=== PATIENT | female | born 1950 | race Caucasian/White ===

== ENCOUNTER 2021-08-22 13:32 | Inpatient (IN) | payer MEDICARE ==
--- NOTE | 2021-08-22 16:15 | ED ---
General Adult HPI - General Chief complaint: Abdominal Pain Stated complaint: Elevated Liver Enzymes/WBC, Abd Pain Time Seen by Provider: 08/22/21 15:53 Source: patient Mode of arrival: ambulatory Limitations: no limitations - History of Present Illness Initial comments: Dictation was produced using [employer] dictation software. please excuse any gram matical, word or spelling errors. Chief Complaint: 70-year-old female past medical history of bowel resection due to diverticulitis presents to the emergency department for abdominal pain History of Present Illness: 70-year-old female presents to the emergency department for abdominal pain. Patient currently resides in [place]. 10 years ago she had 12 inches of bowel resected for repeated episodes of diverticulitis. Patient has had irregular bowel movements since then. They are in town visiting their property when over the last couple days patient's been having increased episodes of suprapubic abdominal pain. She is worried that she is having diverticulitis. Didn't know what to do so they went to the urgent care she had some blood work drawn. Her blood work was otherwise unremarkable except for some mild liver enzyme elevations. Patient presents with . The plan was to be in town for the next month before going back to [place]. Patient has any fever. No nausea vomiting. No diarrhea. Patient states she's had difficulty passing stool and she thinks she is constipated. She has history of bowel resection and hysterectomy. The ROS documented in this emergency department record has been reviewed and confirmed by me. Those systems with pertinent positive or negative responses have been documented in the HPI. All other systems are other negative and/or noncontributory. PHYSICAL EXAM: General Impression: Alert and oriented x3, not in acute distress HEENT: Normocephalic atraumatic, extra-ocular movements intact, pupils equal and reactive to light bilaterally, mucous membranes moist. Cardiovascular: Heart regular rate and rhythm Chest: Able to complete full sentences, no retractions, no tachypnea Abdomen: abdomen soft, mild palpatory tenderness to the suprapubic area., non- distended, no organomegaly Musculoskeletal: Pulses present and equal in all extremities, no peripheral edema Motor: no focal deficits noted Neurological: CN II-XII grossly intact, no focal motor or sensory deficits noted Skin: Intact with no visualized rashes Psych: Normal affect and mood ED course: 70-year-old female presents to the emergency department for abdominal pain. Vital signs upon arrival are within acceptable limits. Laboratory evaluation obtained. Mild leukocytosis of 11.0. 9.9 neutrophils. Metabolic panel shows mild anion gap acidosis. She has 4+ ketones. Patient has had poor oral intake in the last several days. Slightly secondary to d ehydration and starvation ketoacidosis. Computed tomography scan of the abdomen and pelvis was reviewed by radiology. Radiology read that patient's films is highly suspicious for malignancy. Phenytoin diverticula but there is extensive pelvic inflammatory changes and small amount of free nonloculated fluid. There is a adrenal nodule on the left adrenal gland. Hepatic steatosis. Nutcracker syndrome. And nonspecific dilatation to the gallbladder. Patient reevaluated at bedside. She is afebrile states that her pain is stable. Rest concern of intra-abdominal infection. Patient started on Zosyn. Given radiology images patient will be admitted to the hospital with general surgery on consult. Patient notified of these results. She is told of the radiology reading her laboratory evaluation. She is agreeable with staying in the hospital. Case discussed with Dr. Garcia who requests the patient be admitted to medicine if there is no obvious need for surgical intervention. Patient will be admitted to [facility]. - Related Data Home Medications Medication Instructions Recorded Confirmed Aspirin EC [Ecotrin Low Dose] 81 mg PO DAILY 08/22/21 08/22/21 Cephalexin [Keflex] 250 mg PO DAILY PRN 08/22/21 08/22/21 Ciprofloxacin HCl [Cipro] 500 mg PO Q12HR 08/22/21 08/22/21 Meloxicam [Mobic] 15 mg PO DAILY PRN 08/22/21 08/22/21 Spironolactone 100 mg PO DAILY 08/22/21 08/22/21 metroNIDAZOLE [Flagyl] 500 mg PO Q8H 08/22/21 08/22/21 Allergies Allergy/AdvReac Type Severity Reaction Status Date / Time No Known Allergies Allergy Verified 08/22/21 16:50 Review of Systems ROS Statement: Those systems with pertinent positive or pertinent negative responses have been documented in the HPI. ROS Other: All systems not noted in ROS Statement are negative. Past Medical History Past Medical History: Hypertension History of Any Multi-Drug Resistant Organisms: None Reported Past Surgical History: Tubal Ligation Past Psychological History: Anxiety Smoking Status: Never smoker Past Alcohol Use History: None Reported Past Drug Use History: None Reported General Exam Limitations: no limitations Course Vital Signs 08/22/21 08/22/21 08/22/21 13:35 16:35 18:11 Temperature 97.9 F Pulse Rate 100 98 91 Respiratory 16 20 20 Rate Blood Pressure 145/55 132/75 120/72 O2 Sat by Pulse 97 97 97 Oximetry 08/22/21 20:00 Temperature 98.0 F Pulse Rate 95 Respiratory 20 Rate Blood Pressure 122/69 O2 Sat by Pulse 96 Oximetry Medical Decision Making - Lab Data Result diagrams: 08/22/21 16:33 08/22/21 16:33 Lab Results 08/22/21 08/22/21 08/22/21 Range/Units 16:33 16:33 16:33 WBC 11.0 H (3.8-10.6) k/uL RBC 4.76 (3.80-5.40) m/uL Hgb 15.6 (11.4-16.0) gm/dL Hct 47.3 H (34.0-46.0) % MCV 99.5 (80.0-100.0) fL MCH 32.8 (25.0-35.0) pg MCHC 33.0 (31.0-37.0) g/dL RDW 11.8 (11.5-15.5) % Plt Count 311 (150-450) k/uL MPV 7.0 Neutrophils % 90 % Lymphocytes % 6 % Monocytes % 3 % Eosinophils % 0 % Basophils % 0 % Neutrophils # 9.9 H (1.3-7.7) k/uL Lymphocytes # 0.7 L (1.0-4.8) k/uL Monocytes # 0.3 (0-1.0) k/uL Eosinophils # 0.0 (0-0.7) k/uL Basophils # 0.0 (0-0.2) k/uL Sodium 135 L (137-145) mmol/L Potassium 4.1 (3.5-5.1) mmol/L Chloride 100 (98-107) mmol/L Carbon Dioxide 19 L (22-30) mmol/L Anion Gap 16 mmol/L BUN 10 (7-17) mg/dL Creatinine 0.41 L (0.52-1.04) mg/dL Est GFR (CKD-EPI)AfAm >90 (>60 ml/min/1.73 sqM) Est GFR (CKD-EPI)NonAf >90 (>60 ml/min/1.73 sqM) Glucose 101 H (74-99) mg/dL Calcium 9.5 (8.4-10.2) mg/dL Urine Color Yellow Urine Appearance Clear (Clear) Urine pH 5.0 (5.0-8.0) Ur Specific [place] 1.015 (1.001-1.035) Urine Protein Negative (Negative) Urine Glucose (UA) Negative (Negative) Urine Ketones 4+ H (Negative) Urine Blood Negative (Negative) Urine Nitrite Negative (Negative) Urine Bilirubin Negative (Negative) Urine Urobilinogen <2.0 (<2.0) mg/dL Ur Leukocyte Esterase Small H (Negative) Urine RBC 1 (0-5) /hpf Urine WBC 1 (0-5) /hpf Ur Squamous Epith Cells 3 (0-4) /hpf Urine Bacteria Rare H (None) /hpf Urine Mucus Rare H (None) /hpf Disposition Clinical Impression: Abdominal pain Disposition: ADMITTED IP TO THIS [facility] Condition: Fair Referrals: Nonstaff,Physician [REFERRING] - 1-2 days
[2021-08-22 16:42] LABS: Basophils % (A) 0 %; Eosinophils % (A) 0 %; HCT 47.3 % (34.0-46.0); HGB 15.6 gm/dL (11.4-16.0); Lymphocytes # (A) 0.7 k/uL (1.0-4.8); Lymphocytes % (A) 6 %; MCH 32.8 pg (25.0-35.0); MCV 99.5 fL (80.0-100.0); Monocytes # (A) 0.3 k/uL (0-1.0); Monocytes % (A) 3 %; Neutrophils # (A) 9.9 k/uL (1.3-7.7); Neutrophils % (A) 90 %; Platelet Count 311 k/uL (150-450); RBC 4.76 m/uL (3.80-5.40); RDW 11.8 % (11.5-15.5)
[2021-08-22 16:45] LABS: Appearance,Urine Clear (Clear); Bacteria,Urine Rare /hpf; Bilirubin,Urine Negative (Negative); Blood,Urine Negative (Negative); Color,Urine Yellow; Glucose,Urine (UA) Negative (Negative); Ketones,Urine 4+ (Negative); Leukocyte Esterase,Urine Small (Negative); Mucus,Urine Rare /hpf; Nitrite,Urine Negative (Negative); Protein,Urine Negative (Negative); RBC,Urine 1 /hpf (0-5); Specific Gravity,Urine 1.015 (1.001-1.035); Squamous Epithelial Cell,Urine 3 /hpf (0-4); Urobilinogen,Urine <2.0 mg/dL (<2.0); WBC,Urine 1 /hpf (0-5)
[2021-08-22 17:01] LABS: African American GFR (CKD) >90 (>60 ml/min/1.73 sqM); Anion Gap 16 mmol/L; Blood Urea Nitrogen 10 mg/dL (7-17); Calcium 9.5 mg/dL (8.4-10.2); Carbon Dioxide 19 mmol/L (22-30); Chloride 100 mmol/L (98-107); Glucose 101 mg/dL (74-99); Non-African American GFR(CKD) >90 (>60 ml/min/1.73 sqM); Potassium 4.1 mmol/L (3.5-5.1); Sodium 135 mmol/L (137-145)
[2021-08-22] MEDS ORDERED: SODIUM CHLORIDE 0.9% 1,000 ML IV STA (17:47)
[2021-08-22] MEDS ORDERED: PIPERACILLIN-TAZOBACTAM 3.375 GM in SODIUM CHLORIDE 0.9% 100 ML IVPB STA (20:21)
--- NOTE | 2021-08-22 20:24 | CT ---
EXAMINATION TYPE: CT abdomen pelvis w con DATE OF EXAM: 08/22/2021 HISTORY: Abdominal pain/pressure above pubic region, elevated liver enzymes. CT DLP: 652.6mGycm Automated Exposure Control for Dose Reduction was Utilized. CONTRAST: CT scan of the abdomen and pelvis is performed with IV Contrast, patient injected with 100 mL of Isov ue 300. COMPARISON: None FINDINGS: LUNG BASES: No significant abnormality is appreciated. INCLUDED CARDIAC STRUCTURES: Unremarkable LIVER: Hepatic steatosis. Normal contour. Heterogeneous parenchyma. No focal hepatic mass seen. GALLBLADDER : Dilated gallbladder. BILIARY TREE: Prominent extrahepatic common bile duct measuring up 7.3 mm near the victor manuel hepatis. PANCREAS: Prominent main pancreatic duct measuring less than 4 mm in diameter. Unremarkable appearing pancreas. SPLEEN: No significant abnormality is seen. ADRENALS: Normal appearing right adrenal gland. 0.8 cm low attenuating lesion in the left adrenal gla nd. KIDNEYS AND URETERS: No significant abnormality is seen. URINARY BLADDER: No significant abnormality is appreciated. ESOPHAGUS: There is mild thickening at the gastroesophageal junction. STOMACH: No significant abnormality is seen. SMALL BOWEL: No significant abnormality is seen. LARGE BOWEL: There are postsurgical changes involving the rectum. There is significant stranding surr ounding the sigmoid colon. There is a focal area in the sigmoid colon with abnormal/absent wall enhan cement seen on series 201 image 62 with extensive surrounding mesentery changes small amount of nonlo culated fluid. There are a few extramural foci of air are example series 201 image 60 and series 201 image 62. APPENDIX: Not definitely identified. HERNIAS: No significant abnormality is seen. UTERUS/ADNEXA: Nonvisualized uterus. Adnexa obscured by inflammatory changes difficult to evaluate. PERITONEUM/MESENTRY: Few scattered foci of extraluminal air around the cecum. LYMPH NODES: No enlarged retroperitoneal or pelvic lymph nodes are appreciated. MAJOR VASCULAR STRUCTURES: Nonaneurysmal aorta. Unremarkable inferior vena cava. Mild narrowing of th e left renal vein between the superior mesenteric artery and aorta. OSSEOUS STRUCTURES: No acute osseous abnormality. Degenerative changes seen in the lower lumbar spine . IMPRESSION: 1. Findings are concerning for perforation of the sigmoid colon with extensive pelvic inflammatory ch anges and small amount of free nonloculated fluid. Malignancy highly suspected, no definite diverticu la identified though small diverticula in the sigmoid cannot be excluded. See body of report. 2. Abnormal and absent wall enhancement involving the focal area of the sigmoid could be secondary t o this, perforation or vascular insult-vascular insult felt to be less likely. 3. Postsurgical changes in the rectum, correlation with history recommended. 4. 0.8 cm left adrenal nodule indeterminate etiology recommend correlation with adrenal mass protocol CT. 5. Hepatic steatosis with heterogeneous parenchyma. Hepatocellular disease causes appearance. 6. Mild narrowing of the left renal vein by the superior mesenteric artery (nutcracker syndrome). 7. Nonspecific dilatation of the gallbladder. Clinical correlation recommended. Dr. Echeverria called Dr. Rojo at 8:20pm 08/22/21 with above findings. Communication acknowledged.
[2021-08-22] MEDS ORDERED: MORPHINE SULFATE 4 MG/ML SYRINGE IV PRN (20:57)
[2021-08-22] MEDS ORDERED: NALOXONE 0.4 MG/ML 1 ML VIAL IV PRN (20:57)
[2021-08-22] MEDS ORDERED: ONDANSETRON 4 MG/2 ML VIAL IVP PRN (20:57)
[2021-08-23] MEDS: SODIUM CHLORIDE 0.9% 1,000 ML IV SCH ×4 (00:05→21:09)
--- NOTE | 2021-08-23 00:50 | P.HPIM ---
History of Present Illness H&P Date: 08/23/21 Patient is a 70-year-old female with a PMH of diverticular colitis status post colectomy (20 years ago) and hypertension who presents to the emergency room with complaints of abdominal pain. The patient reports that her symptoms started this past Friday roughly 5 days ago after they had a large breakfast at a diner. Patient states that she developed suprapubic discomfort, pressure and achy in nature, nonradiating, 7 out of 10 of maximal intensity, constant, with no alleviating or exacerbating features. The patient was seen at an outpatient clinic where blood work was drawn showing leukocytosis and elevated LFTs. Patient was subsequently started on antibiotics for suspected diverticulitis. She was however called back in to the clinic due to abnormal blood work and was then advised to go to the emergency room. At time of, the patient reported ongoing suprapubic abdominal pain but denied any additional complaints. She denied dysuria, nausea, vomiting, diarrhea. Also denied fever, chills, weight loss. Denied chest pain, shortness of breath, headaches, weakness, numbness. The patient underwent a CT abdomen and pelvis with contrast showing multiple findings including possible perforation of the sigmoid colon with extensive pelvic inflammatory changes and a small amount of free nonloculated fluid with malignancy highly suspected. Furthermore, 0.8 cm left adrenal nodule was noted with recommended correlation with an adrenal CT. Caltrate evaluation was remarkable for leukocytosis of 11.0 and the patient was admitted for further management and started on IV Zosyn and IV fluids. Patient states that her last colonoscopy was 1 year ago and was normal. Review of systems: Pertinent positives and negatives as discussed in HPI, a complete review of systems was performed and all other systems are negative. Physical examination: General: non toxic, no distress, appears at stated age, normal weight Derm: no unusual rashes/lesions no unusual ecchymoses, warm, dry Head: atraumatic, normocephalic, symmetric Eyes: EOMI, no lid lag, anicteric sclera, pupils equal round reactive to light ENT: Nose and ears atraumatic, no thrush, no pharyngeal erythema Neck: No thyromegaly, no cervical lymphadenopathy, trachea midline, supple Mouth: no lip lesion, mucus membranes moist Cardiovascular: S1S2 reg, no murmur, positive posterior tibial pulse bilateral, no edema, capillary refill less than 2 seconds Lungs: CTA bilateral, no rhonchi, no rales , no accessory muscle use Abdominal: soft, mild suprapubic tenderness to palpation, no guarding, no appreciable organomegaly, normal bowel sounds Ext: no gross muscle atrophy, muscle strength 5 out of 5 in all 4 extremities grossly, no contractures, Neuro: CN II-XI grossly intact, light touch intact all 4 extremities, finger to nose within normal limits, Psych: Alert, oriented, appropriate affect Assessment/plan Abdominal pain with abnormal computed tomography scan findings including possible mass in perforation -Surgery consulted -Nothing by mouth for now -IV fluids -Pain control -Antiemetics -Continue with antibiotics with Zosyn for now Chronic conditions: Hypertension -Hold off on anti-hypertensive in setting of borderline BP DVT prophylaxis -Heparin subq The patient is admitted with an anticipated less than 2 midnight stay for evaluation of abdominal pain CODE STATUS: Full Code Discussed with: Patient Anticipated discharge date: in am Anticipated discharge place: Home Past Medical History Past Medical History: Hypertension History of Any Multi-Drug Resistant Organisms: None Reported Past Surgical History: Tubal Ligation Past Psychological History: Anxiety Smoking Status: Never smoker Past Alcohol Use History: None Reported Past Drug Use History: None Reported Medications and Allergies Home Medications Medication Instructions Recorded Confirmed Type Aspirin EC [Ecotrin Low Dose] 81 mg PO DAILY 08/22/21 08/22/21 History Cephalexin [Keflex] 250 mg PO DAILY PRN 08/22/21 08/22/21 History Ciprofloxacin HCl [Cipro] 500 mg PO Q12HR 08/22/21 08/22/21 History Meloxicam [Mobic] 15 mg PO DAILY PRN 08/22/21 08/22/21 History Spironolactone 100 mg PO DAILY 08/22/21 08/22/21 History metroNIDAZOLE [Flagyl] 500 mg PO Q8H 08/22/21 08/22/21 History Allergies Allergy/AdvReac Type Severity Reaction Status Date / Time No Known Allergies Allergy Verified 08/22/21 16:50 Physical Exam Vitals: Vital Signs Temp Pulse Pulse Resp BP BP Pulse Ox 08/22/21 23:52 98.7 F 96 16 134/78 97 08/22/21 23:35 98.0 F 90 16 121/47 97 08/22/21 22:47 98.0 F 87 18 120/45 96 08/22/21 20:00 98.0 F 95 20 122/69 96 08/22/21 18:11 91 20 120/72 97 08/22/21 16:35 98 20 132/75 97 08/22/21 13:35 97.9 F 100 16 145/55 97 Intake and Output 08/22/21 08/22/21 08/23/21 14:59 22:59 06:59 Other: Weight 58.513 kg Results CBC & Chem 7: 08/22/21 16:33 08/22/21 16:33 Labs: Abnormal Lab Results - Last 24 Hours (Table) 08/22/21 08/22/21 08/22/21 Range/Units 16:33 16:33 16:33 WBC 11.0 H (3.8-10.6) k/uL Hct 47.3 H (34.0-46.0) % Neutrophils # 9.9 H (1.3-7.7) k/uL Lymphocytes # 0.7 L (1.0-4.8) k/uL Sodium 135 L (137-145) mmol/L Carbon Dioxide 19 L (22-30) mmol/L Creatinine 0.41 L (0.52-1.04) mg/dL Glucose 101 H (74-99) mg/dL Urine Ketones 4+ H (Negative) Ur Leukocyte Esterase Small H (Negative) Urine Bacteria Rare H (None) /hpf Urine Mucus Rare H (None) /hpf
[2021-08-23 04:23] LABS: HCT 40.6 % (34.0-46.0); HGB 13.1 gm/dL (11.4-16.0); MCH 32.4 pg (25.0-35.0); MCHC 32.2 g/dL (31.0-37.0); MCV 100.5 fL (80.0-100.0); Mean Platelet Volume 6.9; Platelet Count 299 k/uL (150-450); RBC 4.03 m/uL (3.80-5.40); RDW 11.9 % (11.5-15.5); WBC 8.9 k/uL (3.8-10.6)
[2021-08-23 04:53] LABS: ALT 186 U/L (4-34); AST 51 U/L (14-36); African American GFR (CKD) >90 (>60 ml/min/1.73 sqM); Albumin 3.2 g/dL (3.5-5.0); Albumin/Globulin Ratio 1.1; Alkaline Phosphatase 134 U/L (38-126); Anion Gap 11 mmol/L; Blood Urea Nitrogen 11 mg/dL (7-17); Calcium 8.5 mg/dL (8.4-10.2); Carbon Dioxide 19 mmol/L (22-30); Chloride 107 mmol/L (98-107); Globulin 2.8 g/dL; Glucose 83 mg/dL (74-99); Non-African American GFR(CKD) >90 (>60 ml/min/1.73 sqM); Potassium 4.8 mmol/L (3.5-5.1); Sodium 137 mmol/L (137-145); Total Bilirubin 0.7 mg/dL (0.2-1.3)
[2021-08-23] MEDS: PIPERACILLIN-TAZOBACTAM 3.375 GM in SODIUM CHLORIDE 0.9% 100 ML IVPB SCH ×3 (05:17→21:08)
[2021-08-23] MEDS: HEPARIN SODIUM,PORCINE/PF 5,000 UNIT/0.5 ML SYRINGE SQ SCH ×3 (09:39→22:11)
--- NOTE | 2021-08-23 11:55 | P.GSCN ---
History of Present Illness Consult date: 08/23/21 History of present illness: CHIEF COMPLAINT: Abdominal pain and elevated LFTs HISTORY OF PRESENT ILLNESS: This is a 70-year-old female with a known prior history of multiple episodes of diverticulitis. She has had a bowel resection for diverticulitis about 9 years ago and also at that time had a tumor removed from her cervix that was benign. Patient also has a known history of colon polyp at age 49 again was reported benign. Her last colonoscopy was less than a year ago and patient reports that it was normal. She lives in [place] her colonoscopies have been completed [place]. She is currently in [place] for one month. Patient reports having lower abdominal pain. Symptoms started on Friday after eating greasy food and a restaurant. She complains of a lot of pressure and bloating. She had been to see her PCP they had done blood work and she was told that her liver enzymes were elevated and to come into the ER since she continued to have discomfort. Patient reports having bowel movements. She denies any blood in her stools or black stools. She denies any nausea or vomiting. She denies any fever chills or sweats. She does have night sweats but contributes that to her hormones. She denies any unexplained weight loss. Patient also has noticed a new pressure in the rectal area over the last 2 months. This pain does resolve after a bowel movement. She does have a cousin on her father's side with known colon cancer. Patient had computed tomography scan of abdomen and pelvis completed with findings concerning for perforation of the sigmoid colon with extensive pelvic inflammatory changes and small amount of free non-loculated fluid. Malignancy highly suspected. No definite diverticula identified. Patient reports improvement since admission and the abdominal pressure. PAST MEDICAL HISTORY: Diverticulitis, hypertension PAST SURGICAL HISTORY: Diverticulitis status post small bowel resection and benign tumor of the cervix removed 9 years ago Hysterectomy Tubal ligation MEDICATIONS: See list. ALLERGIES: See list. SOCIAL HISTORY: No illicit drug use. Denies any smoking or alcohol use. REVIEW OF SYSTEMS: CONSTITUTIONAL: Denies fever or chills. HEENT: Denies blurred vision, vision changes, or eye pain. Denies hemoptysis ENDOCRINE: Denies heat or cold intolerance. CARDIOVASCULAR: Denies chest pain or pressure. RESPIRATORY: No shortness of breath. GASTROINTESTINAL: Please refer to HPI NEURO: Denies history of seizures. PSYCH: No depression or suicidal ideation HEMATOLOGIC: Denies bleeding disorders. LYMPHATIC: The patient denies any lumps and bumps around the neck. GENITOURINARY: Denies any blood in urine or increased urinary frequency. MUSCULOSKELETAL: Denies myalgias. Denies joint swelling. Denies decreased range of motion beyond patients baseline. SKIN: Denies pruitis. Denies rash. PHYSICAL EXAM: VITAL SIGNS: Reviewed GENERAL: Well-developed in no acute distress. HEENT: No sclera icterus. Extraocular movements grossly intact. Moist buccal mucosa. Head is atraumatic, normocephalic. Hears conversational speech. No nasal drainage. NECK: Supple without lymphadenopathy. CHEST: Non-labored respirations and equal bilateral excursions. CARDIOVASCULAR: Palpable 2+ radial pulses. ABDOMEN: Soft. Nondistended. Minimal tenderness with palpation of the lower abdomen MUSCULOSKELETAL: No clubbing or cyanosis. NEUROLOGIC: No focal or lateralizing signs. Cranial nerves II through XII grossly intact. PSYCH: Appropriate affect. Alert and oriented to person, place and time. SKIN: Well perfused. Good skin turgor. LABORATORY DATA: WBC 11 down to 8.9 hemoglobin 15.6 down to 13.1 platelets 299 sodium 137 potassium 4.8 BUN 11 creatinine 0.48 total bilirubin 0.7 AST 51 ALT 186 alk phos 134 COVID-19 not detected Urinalysis small leukocyte esterase IMAGING: computed tomography scan of abdomen and pelvis completed with findings concerning for perforation of the sigmoid colon with extensive pelvic inflammatory changes and small amount of free non-loculated fluid. Malignancy highly suspected. No definite diverticula identified those small diverticula in the sigmoid cannot be excluded. Abnormal and absent wall enhancement involving the focal area of the sigmoid could be secondary to this, perforation or vascular insults. Vascular insult felt to be less likely. Postsurgical changes in the rectum. 0.8 cm left adrenal nodule indeterminate etiology recommend correlation with adrenal mass protocol CT. Hepatic steatosis with heterogenous parenchyma. Hepatocellular disease causes appearance. Mild narrowing of the left renal vein by the superior mesenteric artery. Nonspecific dilation of the gallbladder. ASSESSMENT: 1. Lower abdominal pressure 2. Perforation of the sigmoid colon with with extensive pelvic inflammatory changes. Malignancy highly suspected noted on CT scan. Patient had colonoscopy less than a year ago unlikely that these changes are malignant. 3. Mildly elevated LFTs with dilation of the gallbladder. Patient does have occasional right upper quadrant pain. Family history of cholecystectomies 4. History of recurrent diverticulitis status post bowel resection 9 years ago. Patient reports 12 inches of colon removed. 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 Signing provider agrees with the documented findings, assessment, and plan of care. Past Medical History Past Medical History: Hypertension Additional Past Medical History / Comment(s): restless leg syndrome; diverticulitis History of Any Multi-Drug Resistant Organisms: None Reported Past Surgical History: Tubal Ligation Additional Past Surgical History / Comment(s): bowel resection (9-10 years ago) Past Anesthesia/Blood Transfusion Reactions: No Reported Reaction Past Psychological History: Anxiety Smoking Status: Never smoker Past Alcohol Use History: None Reported Past Drug Use History: None Reported Medications and Allergies Home Medications Medication Instructions Recorded Confirmed Type Aspirin EC [Ecotrin Low Dose] 81 mg PO DAILY 08/22/21 08/22/21 History Cephalexin [Keflex] 250 mg PO DAILY PRN 08/22/21 08/22/21 History Ciprofloxacin HCl [Cipro] 500 mg PO Q12HR 08/22/21 08/22/21 History Meloxicam [Mobic] 15 mg PO DAILY PRN 08/22/21 08/22/21 History Spironolactone 100 mg PO DAILY 08/22/21 08/22/21 History metroNIDAZOLE [Flagyl] 500 mg PO Q8H 08/22/21 08/22/21 History Allergies Allergy/AdvReac Type Severity Reaction Status Date / Time No Known Allergies Allergy Verified 08/22/21 16:50 Surgical - Exam Vital Signs Temp Pulse Resp BP Pulse Ox 97.9 F 100 16 145/55 97 08/22/21 13:35 08/22/21 13:35 08/22/21 13:35 08/22/21 13:35 08/22/21 13:35 Results - Labs 08/23/21 03:52 08/23/21 03:52 Abnormal Lab Results - Last 24 Hours (Table) 08/22/21 08/22/21 08/22/21 Range/Units 16:33 16:33 16:33 WBC 11.0 H (3.8-10.6) k/uL Hct 47.3 H (34.0-46.0) % MCV (80.0-100.0) fL Neutrophils # 9.9 H (1.3-7.7) k/uL Lymphocytes # 0.7 L (1.0-4.8) k/uL Sodium 135 L (137-145) mmol/L Carbon Dioxide 19 L (22-30) mmol/L Creatinine 0.41 L (0.52-1.04) mg/dL Glucose 101 H (74-99) mg/dL AST (14-36) U/L ALT (4-34) U/L Alkaline Phosphatase (38-126) U/L Total Protein (6.3-8.2) g/dL Albumin (3.5-5.0) g/dL Urine Ketones 4+ H (Negative) Ur Leukocyte Esterase Small H (Negative) Urine Bacteria Rare H (None) /hpf Urine Mucus Rare H (None) /hpf 08/23/21 08/23/21 Range/Units 03:52 03:52 WBC (3.8-10.6) k/uL Hct (34.0-46.0) % MCV 100.5 H (80.0-100.0) fL Neutrophils # (1.3-7.7) k/uL Lymphocytes # (1.0-4.8) k/uL Sodium (137-145) mmol/L Carbon Dioxide 19 L (22-30) mmol/L Creatinine 0.48 L (0.52-1.04) mg/dL Glucose (74-99) mg/dL AST 51 H (14-36) U/L ALT 186 H (4-34) U/L Alkaline Phosphatase 134 H (38-126) U/L Total Protein 6.0 L (6.3-8.2) g/dL Albumin 3.2 L (3.5-5.0) g/dL Urine Ketones (Negative) Ur Leukocyte Esterase (Negative) Urine Bacteria (None) /hpf Urine Mucus (None) /hpf Diabetes panel 08/22/21 08/23/21 Range/Units 16:33 03:52 Sodium 135 L 137 (137-145) mmol/L Potassium 4.1 4.8 (3.5-5.1) mmol/L Chloride 100 107 (98-107) mmol/L Carbon Dioxide 19 L 19 L (22-30) mmol/L BUN 10 11 (7-17) mg/dL Creatinine 0.41 L 0.48 L (0.52-1.04) mg/dL Glucose 101 H 83 (74-99) mg/dL Calcium 9.5 8.5 (8.4-10.2) mg/dL AST 51 H (14-36) U/L ALT 186 H (4-34) U/L Alkaline Phosphatase 134 H (38-126) U/L Total Protein 6.0 L (6.3-8.2) g/dL Albumin 3.2 L (3.5-5.0) g/dL Calcium panel 08/22/21 08/23/21 Range/Units 16:33 03:52 Calcium 9.5 8.5 (8.4-10.2) mg/dL Albumin 3.2 L (3.5-5.0) g/dL Pituitary panel 08/22/21 08/23/21 Range/Units 16:33 03:52 Sodium 135 L 137 (137-145) mmol/L Potassium 4.1 4.8 (3.5-5.1) mmol/L Chloride 100 107 (98-107) mmol/L Carbon Dioxide 19 L 19 L (22-30) mmol/L BUN 10 11 (7-17) mg/dL Creatinine 0.41 L 0.48 L (0.52-1.04) mg/dL Glucose 101 H 83 (74-99) mg/dL Calcium 9.5 8.5 (8.4-10.2) mg/dL Adrenal panel 08/22/21 08/23/21 Range/Units 16:33 03:52 Sodium 135 L 137 (137-145) mmol/L Potassium 4.1 4.8 (3.5-5.1) mmol/L Chloride 100 107 (98-107) mmol/L Carbon Dioxide 19 L 19 L (22-30) mmol/L BUN 10 11 (7-17) mg/dL Creatinine 0.41 L 0.48 L (0.52-1.04) mg/dL Glucose 101 H 83 (74-99) mg/dL Calcium 9.5 8.5 (8.4-10.2) mg/dL Total Bilirubin 0.7 (0.2-1.3) mg/dL AST 51 H (14-36) U/L ALT 186 H (4-34) U/L Alkaline Phosphatase 134 H (38-126) U/L Total Protein 6.0 L (6.3-8.2) g/dL Albumin 3.2 L (3.5-5.0) g/dL
--- NOTE | 2021-08-23 14:02 | P.PN ---
Subjective Patient was seen and evaluated this morning. She still complaining of sensation of heaviness in the lower abdomen that is worse when she stands up. No nausea or vomiting otherwise. No fevers or chills. Objective - Vital Signs Vital signs: Vital Signs Temp 98.7 F 08/23/21 11:40 Pulse 94 08/23/21 11:40 Resp 16 08/23/21 11:40 BP 101/61 08/23/21 11:40 Pulse Ox 97 08/23/21 11:40 Intake & Output 08/22/21 08/23/21 08/23/21 18:59 06:59 18:59 Intake Total 600 Balance 600 Weight 58.513 kg 58.513 kg Intake: Intake, IV Titration 600 Amount Sodium Chloride 0.9% 1, 600 000 ml @ 130 mls/hr IV . Q7H42M [facility] Rx#:[id number] Other: # Voids 1 1 - Exam General: The patient is awake and alert, in no distress Eye: there is normal conjunctiva bilaterally. Neck: The neck is supple, there is no JVD. Cardiovascular: Normal S1-S2, no S3-S4, no murmurs. Respiratory: Lungs clear to auscultation bilaterally Gastrointestinal: Abdomen is soft, nontender Musculoskeletal: There is no pedal edema. Neurological:. Speech is normal. Skin: Skin is warm and dry - Labs CBC & Chem 7: 08/23/21 03:52 08/23/21 03:52 Labs: Abnormal Lab Results - Last 24 Hours (Table) 08/22/21 08/22/21 08/22/21 Range/Units 16:33 16:33 16:33 WBC 11.0 H (3.8-10.6) k/uL Hct 47.3 H (34.0-46.0) % MCV (80.0-100.0) fL Neutrophils # 9.9 H (1.3-7.7) k/uL Lymphocytes # 0.7 L (1.0-4.8) k/uL Sodium 135 L (137-145) mmol/L Carbon Dioxide 19 L (22-30) mmol/L Creatinine 0.41 L (0.52-1.04) mg/dL Glucose 101 H (74-99) mg/dL AST (14-36) U/L ALT (4-34) U/L Alkaline Phosphatase (38-126) U/L Total Protein (6.3-8.2) g/dL Albumin (3.5-5.0) g/dL Urine Ketones 4+ H (Negative) Ur Leukocyte Esterase Small H (Negative) Urine Bacteria Rare H (None) /hpf Urine Mucus Rare H (None) /hpf 08/23/21 08/23/21 Range/Units 03:52 03:52 WBC (3.8-10.6) k/uL Hct (34.0-46.0) % MCV 100.5 H (80.0-100.0) fL Neutrophils # (1.3-7.7) k/uL Lymphocytes # (1.0-4.8) k/uL Sodium (137-145) mmol/L Carbon Dioxide 19 L (22-30) mmol/L Creatinine 0.48 L (0.52-1.04) mg/dL Glucose (74-99) mg/dL AST 51 H (14-36) U/L ALT 186 H (4-34) U/L Alkaline Phosphatase 134 H (38-126) U/L Total Protein 6.0 L (6.3-8.2) g/dL Albumin 3.2 L (3.5-5.0) g/dL Urine Ketones (Negative) Ur Leukocyte Esterase (Negative) Urine Bacteria (None) /hpf Urine Mucus (None) /hpf Assessment and Plan Assessment: This is a 70-year-old female with past medical history noted below that presented to the emergency room with worsening abdominal pain. Patient was evaluated in the ER and admitted to the hospital for further management of her medical problems noted below. 1. Abdominal pain with suspected perforation of the sigmoid colon and extensive inflammatory changes. Patient was started on broad-spectrum antibiotic with IV Zosyn. She was seen and evaluated by general surgery. Continue nothing by mouth/bowel rest. Awaiting further recommendation by general surgery. 2. History of recurrent diverticulitis status post partial co[place] [facility] 8 [place] ago Reported normal colonoscopy a year ago in [place]
--- NOTE | 2021-08-23 14:21 | US ---
EXAMINATION TYPE: US gallbladder DATE OF EXAM: 08/23/2021 COMPARISON: NONE CLINICAL HISTORY: 70-year-old female RUQ pain, elevated LFTs. TECHNIQUE: Multiple sonographic images of the right upper quadrant are obtained. FINDINGS: EXAM MEASUREMENTS: Liver Length: 9.8 cm Gallbladder Wall: 0.2 cm CBD: 6.6 mm Right Kidney: 9.6 x 4.1 x 4.7 cm Pancreas: wnl as seen, partially obscured by bowel gas Liver: Hypoechoic appearance to the liver. No focal lesion. Gallbladder: Hydropic gallbladder measuring 4.5 cm wide. No abnormal wall thickening, shadowing calcu devaughn, or surrounding fluid. Evidence for sonographic Wilkes's sign: no CBD: Borderline to mildly dilated. Right Kidney: No hydronephrosis. IMPRESSION: 1. Hypoechoic appearance to the liver. This may be technical. However, findings may also be seen in t he setting of hepatitis. Clinically correlate. 2. Bile duct borderline to mildly dilated at 6.6 mm. This may be age related change. However, given t he hydropic gallbladder, correlate with alkaline phosphatase and bilirubin levels and possible HIDA s can to exclude early biliary obstruction.
[2021-08-24] MEDS: SODIUM CHLORIDE 0.9% 1,000 ML IV SCH ×2 (02:20→12:18)
[2021-08-24] MEDS: PIPERACILLIN-TAZOBACTAM 3.375 GM in SODIUM CHLORIDE 0.9% 100 ML IVPB SCH ×3 (05:25→21:07)
[2021-08-24] MEDS: HEPARIN SODIUM,PORCINE/PF 5,000 UNIT/0.5 ML SYRINGE SQ SCH ×3 (07:34→21:56)
--- NOTE | 2021-08-24 11:23 | NM ---
Nuclear medicine hepatobiliary scan. HISTORY: Pain. DOSAGE: The patient received 8 ounces of ensure plus and 4.6 mCi of Technetium 99m Choletec. FINDINGS: There is normal hepatic extraction. The gallbladder is seen by 45 minutes. There is bilia ry to bowel clearance by 20 minutes. Ejection fraction is 16%. IMPRESSION: 1. Abnormal ejection fraction of 16% correlate for biliary dyskinesia.
[2021-08-24] MEDS: PANTOPRAZOLE 40 MG TABLET PO SCH ×2 (12:18→17:31)
[2021-08-24] MEDS: SPIRONOLACTONE 25 MG TAB PO SCH (12:18)
--- NOTE | 2021-08-24 12:31 | P.PN ---
Subjective Progress Note Date: 08/24/21 CHIEF COMPLAINT: Complex diverticulitis with right upper quadrant abdominal pain HISTORY OF PRESENT ILLNESS: The patient is a 70-year-old female with history of diverticulitis including sigmoid resection over 10 years ago and recent colonoscopy 10 months ago who presented with suprapubic abdominal pain. She reports intermittent right upper quadrant abdominal pain with eating foods. Prior to admission, she had been on antibiotic ciprofloxacin and Flagyl with minimal improvement of symptoms. She presented to the hospital with additional diagnostic studies demonstrating localized perforated diverticulitis questionable for neoplasm. In addition, LFTs were elevated. She has been afebrile since admission. She is now on day 2 for antibiotics and reports that her abdominal pain is improving. She reports hunger. Additionally, patient complains of new shortness of breath due to moderate fl uids. "I haven't seen in 5 days." Show she reports no history of hypertension as she takes spironolactone as a hormone modulator. ROS: No reports of nausea and vomiting. No bowel movements. No fevers or chills. No new chest pain. No productive sputum PHYSICAL EXAM: VITAL SIGNS: Reviewed CONSTITUTIONAL: Well developed and in no acute distress. EYES: Conjuctivae without sclera icterus. Extraocular movements grossly intact. HEAD, EARS, NOSE, THROAT: Moist buccal mucosa. Head is atraumatic, normocephalic. Hears conversational speech. No nasal drainage. NECK: No gross thyroidomegaly. No jugular venous distention. RESPIRATORY: Non-labored respirations and equal bilateral excursions. CARDIOVASCULAR: Palpable 2+ radial pulses. Regular rate. Regular rhythm. ABDOMEN: Well-healed lower midline incision. No peritonitis. Patient palpates deeply without any moderate pain. Mild tenderness right upper quadrant. MUSCULOSKELETAL: No gross deformity of the lower extremities noted. No clubbing. No cyanosis. SKIN: Good skin turgor. Well perfused. NEUROLOGIC: Cranial nerves II through XII grossly intact. No focal or lateralizing signs. PSYCH: Appropriate affect. Alert and oriented to person, place and time. CLINICAL LABS: Reviewed. White blood cell count normal, less than 10.0 and improved since admission with an initial WBC over 11,000. LFTs on admission elevated. STUDIES: Ultrasound of the gallbladder independently reviewed by me demonstrates moderate gallbladder distention. No large gallstones identified. This is my independent interpretation. HIDA scan independently reviewed demonstrating ejection fraction low 16% consistent with biliary dyskinesia and chronic cholecystitis. ASSESSMENT: 1. Complicated diverticulitis with pre-existing sigmoid colectomy 10 years ago 2. Less than one year ago colonoscopy without neoplasm identified. 3. Chronic cholecystitis with hydrops 4. Elevated LFTs 5. Dyspnea 6. Gastroesophageal reflux disease PLAN: 1. Recommend repeat LFTs. Likely chronic cholecystitis contributing to elevated liver enzymes. 2. At this time, abdominal pain moderately improving on day 2 of antibiotics. May start full liquid diet with slow advancement to low fiber diet 3. Recommend infectious disease consultation due to failed outpatient antibiotic therapy which may require alternative oral versus IV antibiotic infusion 4. As patient is clinically improving, no acute surgical intervention for sigmoid colectomy. 5. Recommend deferring cholecystectomy due to concurrent diverticulitis 6. Conservative management with IV antibiotics described. 7. Patient advised to continue with IV antibiotic course beyond 3 days for m aximum benefit. 8. All questions were addressed with patient and at bedside. Her nurse was also present for discussion. 9. Start Protonix for gastroesophageal reflux disease and gastritis 10. For dyspnea, 2 view chest x-ray obtained for risk of volume overload Objective - Vital Signs Vital signs: Vital Signs Temp 98.0 F 08/24/21 05:30 Pulse 82 08/24/21 05:30 Resp 18 08/24/21 05:30 BP 95/55 08/24/21 05:30 Pulse Ox 95 08/24/21 05:30 Intake & Output 08/23/21 08/24/21 08/24/21 18:59 06:59 18:59 Intake Total 1700 Balance 1700 Intake: Intake, IV Titration 1700 Amount Piperacillin-Tazobactam 3 200 .375 gm In Sodium Chloride 0.9% 100 ml @ 25 mls/hr IVPB Q8H [facility] Rx#: [id number] Sodium Chloride 0.9% 1, 1500 000 ml @ 130 mls/hr IV . Q7H42M [facility] Rx#:[id number] Other: Voiding Method Toilet Toilet # Voids 3 2 - Labs CBC & Chem 7: 08/23/21 03:52 08/23/21 03:52 Assessment and Plan (1) Perforation of sigmoid colon due to diverticulitis Current Visit: Yes Status: Acute Code(s): K57.20 - DVTRCLI OF LG INT W PERFORATION AND ABSCESS W/O BLEEDING SNOMED Code(s): 2061255850209997 (2) Chronic cholecystitis without calculus Current Visit: Yes Status: Acute Code(s): K81.1 - CHRONIC CHOLECYSTITIS SNOMED Code(s): 20745557 (3) GERD (gastroesophageal reflux disease) Current Visit: Yes Status: Acute Code(s): K21.9 - GASTRO-ESOPHAGEAL REFLUX DISEASE WITHOUT ESOPHAGITIS SNOMED Code(s): 419367004 (4) Epigastric pain Current Visit: Yes Status: Acute Code(s): R10.13 - EPIGASTRIC PAIN SNOMED Code(s): 75378809 (5) Dyspnea Current Visit: Yes Status: Acute Code(s): R06.00 - DYSPNEA, UNSPECIFIED SNOMED Code(s): 085957432
--- NOTE | 2021-08-24 12:56 | XR ---
EXAMINATION TYPE: XR chest 2V DATE OF EXAM: 08/24/2021 COMPARISON: NONE TECHNIQUE: PA and lateral views submitted. HISTORY: Shortness of breath FINDINGS: The lungs are clear and there is no pneumothorax, pleural effusion, or focal pneumonia. Postsurgica l change right shoulder. Hyperinflation suggests COPD. IMPRESSION: 1. No acute process. Correlate for COPD.
--- NOTE | 2021-08-24 14:15 | P.PN ---
Subjective Patient is doing fairly well today. Abdominal pain is improved. She was started on clear liquid diet. Objective - Vital Signs Vital signs: Vital Signs Temp 97.7 F 08/24/21 13:00 Pulse 71 08/24/21 13:00 Resp 18 08/24/21 13:00 BP 101/62 08/24/21 13:00 Pulse Ox 98 08/24/21 13:00 Intake & Output 08/23/21 08/24/21 08/24/21 18:59 06:59 18:59 Intake Total 1700 Balance 1700 Intake: Intake, IV Titration 1700 Amount Piperacillin-Tazobactam 3 200 .375 gm In Sodium Chloride 0.9% 100 ml @ 25 mls/hr IVPB Q8H [facility] Rx#: [id number] Sodium Chloride 0.9% 1, 1500 000 ml @ 130 mls/hr IV . Q7H42M [facility] Rx#:[id number] Other: Voiding Method Toilet Toilet # Voids 3 2 - Exam General: The patient is awake and alert, in no distress Eye: there is normal conjunctiva bilaterally. Neck: The neck is supple, there is no JVD. Cardiovascular: Normal S1-S2, no S3-S4, no murmurs. Respiratory: Lungs clear to auscultation bilaterally Gastrointestinal: Abdomen is soft, nontender Musculoskeletal: There is no pedal edema. Neurological:. Speech is normal. Skin: Skin is warm and dry - Labs CBC & Chem 7: 08/23/21 03:52 08/23/21 03:52 Assessment and Plan Assessment: This is a 70-year-old female with past medical history noted below that presented to the emergency room with worsening abdominal pain. Patient was evaluated in the ER and admitted to the hospital for further management of her medical problems noted below. 1. Abdominal pain with suspected perforation of the sigmoid colon and extensive inflammatory changes. Patient was started on broad-spectrum antibiotic with IV Zosyn. She was seen and evaluated by general surgery. She underwent HIDA scan that was abnormal. Gen. surgery believed that her symptoms have be secondary to both diverticulitis and chronic cholecystitis. No surgical intervention recommended at this time. Started on clear liquid diet. Reported normal colonoscopy a year ago in [place] 2. History of recurrent diverticulitis status post partial colectomy approximately 8 years ago 3. 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 I clarified with the patient that she was never diagnosed with hypertension. Blood pressure within next Antivert range during this hospital stay. Patient would benefit from at least 3 days of IV antibiotic given that she failed outpatient oral antibiotic for underlying diverticulitis Continue supportive care otherwise. Repeat lab work in the morning. Anticipate discharge home within the next day or 2.
--- NOTE | 2021-08-25 00:20 | P.CONS ---
History of Present Illness - Reason for Consult Consult date: 08/24/21 Diverticulitis Requesting physician: Jacquelin Garcia - Chief Complaint abd pain x 6 days - History of Present Illness History of present illness : Patient is a 70-year-old female with a past medical history significant for episode of diverticulitis for the patient did have a partial colon resection about 10 years ago and the patient did not have any episodes of diverticulitis since then patient presenting to the ER 2 days ago for evaluation of abdominal pain patient symptoms started last Friday pain has been mostly in the suprapubic area describing it to be more of a dull aching to sharp about 7-8 out of 10 and no radiation has been nauseated but no v omiting no diarrhea or any constipation patient did went to the urgent care with the patient her blood work and she was noticed to have elevated white count and liver enzymes patient was prescribed oral Cipro and Flagyl and she is supposed to go back to the urgent care the day she presented to the ER because of persistent pain and no significant improvement on arrival to the ER the patient was afebrile patient did have white count of 11,000 with a left shift that was observed mildly elevated urine has been negative malik PCR was negative patient did have a CT of abdominal pelvis findings suggestive of perforation of sigmoid colon with extensive pelvic inflammatory disease and small amount of free nonloculated fluid hepatic steatosis patient has been evaluated by general surgery who apparently has reviewed the CAT scan and did not agree with the radiologist interpretation and the patient being treated medically with IV biotherapy patient also have a gallbladder ultrasound and the HIDA scan which shows evidence of biliary dyskinesia infectious disease was consulted for further management of antibiotic therapy patient did mention she is feeling better and the pain is carried out about 2 out of 10 Review of system: CONSTITUTIONAL: Positive for weakness denies fever. EYES: No complaint. ENT: No complaint. RESPIRATORY: No complaint. CARDIOVASCULAR: No complaint. GENITOURINARY: No complaint. GASTROINTESTINAL: As per history of present illness. MUSCULOSKELETAL: No complaint. INTEGUMENTARY: No complaint. PSYCHOLOGIC: No complaint. ENDOCRINE: No complaint. NEUROLOGIC: No complaint. Past medical history : Reviewed, documented below Past surgical history : Reviewed, documented below Social history: Reviewed, documented below Medications: Reviewed, as documented below EXAMINATION: Vital sigans= Reviewed and documented below GENERAL DESCRIPTION: Elderly female up in the chair, no distress. No tachypnea or accessory muscle of respiration use. HEENT: Shows Pallor , no scleral icterus. Oral mucous membrane is dry. NECK: Trachea central, no thyromegaly. LUNGS: Unlabored breathing. Clear to auscultation anteriorly. No wheeze or crackle. HEART: S1, S2, regular rate and rhythm. ABDOMEN: Soft, no tenderness , guarding or rigidity EXTREMITIES: No edema of feet. SKIN: No rash, no masses palpable. NEUROLOGICAL: The patient is awake, alert, oriented x3, mood and affect normal. LABS AND RADIOLOGY: Reviewed results see below Assessment : Patient presented to hospital with abdominal pain in this patient who did have a evidence of extensive diverticulitis and perforation as reported by radiology however surgical team and reviewed the scan has been mentioned surg jero mention no perforation patient did not have any fever and white count with no significant elevated and has normalized very quickly but will point more stools diverticulitis abdominal abscess clinically that has failed outpatient oral Cipro and Flagyl therapy Plan: 1-continue with Zosyn 3.375 g every 8 hours over the weekend 2-recommend obtaining a CT abdominal pelvis on Friday for follow-up and if the patient did have significant improvement may transition to oral antibiotic 3-IV fluid and bowel rest We will follow on clinical condition and cultures to further adjust medication if needed Thank you for this consultation we will follow the patient along with you Past Medical History Past Medical History: Hypertension Additional Past Medical History / Comment(s): restless leg syndrome; diverticulitis History of Any Multi-Drug Resistant Organisms: None Reported Past Surgical History: Tubal Ligation Additional Past Surgical History / Comment(s): partial colectomy (9-10 years ago) Past Anesthesia/Blood Transfusion Reactions: No Reported Reaction Past Psychological History: Anxiety Smoking Status: Never smoker Past Alcohol Use History: None Reported Past Drug Use History: None Reported Medications and Allergies Home Medications Medication Instructions Recorded Confirmed Type Aspirin EC [Ecotrin Low Dose] 81 mg PO DAILY 08/22/21 08/22/21 History Cephalexin [Keflex] 250 mg PO DAILY PRN 08/22/21 08/22/21 History Ciprofloxacin HCl [Cipro] 500 mg PO Q12HR 08/22/21 08/22/21 History Meloxicam [Mobic] 15 mg PO DAILY PRN 08/22/21 08/22/21 History Spironolactone 100 mg PO DAILY 08/22/21 08/22/21 History metroNIDAZOLE [Flagyl] 500 mg PO Q8H 08/22/21 08/22/21 History Allergies Allergy/AdvReac Type Severity Reaction Status Date / Time No Known Allergies Allergy Verified 08/22/21 16:50 Physical Exam Vitals: Vital Signs Temp Pulse Resp BP Pulse Ox 08/24/21 13:00 97.7 F 71 18 101/62 98 08/24/21 05:30 98.0 F 82 18 95/55 95 08/23/21 19:50 92 16 08/23/21 19:45 97.9 F 92 16 103/62 98 Intake and Output 08/24/21 08/24/21 08/24/21 06:59 14:59 22:59 Intake Total 1700 Balance 1700 Intake: Intake, IV Titration 1700 Amount Piperacillin-Tazobactam 3 200 .375 gm In Sodium Chloride 0.9% 100 ml @ 25 mls/hr IVPB Q8H [facility] Rx#: [id number] Sodium Chloride 0.9% 1, 1500 000 ml @ 130 mls/hr IV . Q7H42M [facility] Rx#:[id number] Other: Voiding Method Toilet # Voids 2 Results CBC & Chem 7: 08/23/21 03:52 08/23/21 03:52
[2021-08-25] MEDS: PIPERACILLIN-TAZOBACTAM 3.375 GM in SODIUM CHLORIDE 0.9% 100 ML IVPB SCH ×3 (04:45→21:31)
[2021-08-25 07:41] LABS: Basophils % (A) 0 %; Eosinophils # (A) 0.1 k/uL (0-0.7); Eosinophils % (A) 2 %; HCT 41.9 % (34.0-46.0); HGB 13.9 gm/dL (11.4-16.0); Lymphocytes # (A) 1.2 k/uL (1.0-4.8); Lymphocytes % (A) 16 %; MCH 32.8 pg (25.0-35.0); MCHC 33.2 g/dL (31.0-37.0); MCV 98.7 fL (80.0-100.0); Mean Platelet Volume 7.2; Monocytes # (A) 0.3 k/uL (0-1.0); Monocytes % (A) 5 %; Neutrophils # (A) 5.3 k/uL (1.3-7.7); Neutrophils % (A) 75 %; Platelet Count 358 k/uL (150-450); RBC 4.24 m/uL (3.80-5.40); RDW 12.4 % (11.5-15.5)
[2021-08-25 07:53] LABS: ALT 118 U/L (4-34); AST 44 U/L (14-36); African American GFR (CKD) >90 (>60 ml/min/1.73 sqM); Albumin 3.6 g/dL (3.5-5.0); Albumin/Globulin Ratio 1.2; Alkaline Phosphatase 142 U/L (38-126); Anion Gap 9 mmol/L; Blood Urea Nitrogen 3 mg/dL (7-17); Calcium 8.8 mg/dL (8.4-10.2); Carbon Dioxide 19 mmol/L (22-30); Chloride 108 mmol/L (98-107); Glucose 90 mg/dL (74-99); Non-African American GFR(CKD) >90 (>60 ml/min/1.73 sqM); Potassium 3.9 mmol/L (3.5-5.1); Sodium 136 mmol/L (137-145); Total Bilirubin 1.1 mg/dL (0.2-1.3); Total Protein 6.6 g/dL (6.3-8.2)
[2021-08-25] MEDS: ASPIRIN 81 MG PO SCH (08:38)
[2021-08-25] MEDS: SPIRONOLACTONE 25 MG TAB PO SCH (08:38)
[2021-08-25] MEDS: PANTOPRAZOLE 40 MG TABLET PO SCH ×2 (08:38→17:57)
[2021-08-25] MEDS: HEPARIN SODIUM,PORCINE/PF 5,000 UNIT/0.5 ML SYRINGE SQ SCH ×3 (08:39→21:42)
--- NOTE | 2021-08-25 11:09 | P.PN ---
Subjective Progress Note Date: 08/25/21 Principal diagnosis: Diverticulitis Patient feels much better today. Tolerating full liquid diet. No pain at present. White blood cell count is normal. Liver enzymes improving. Objective - Vital Signs Vital signs: Vital Signs Temp 98.0 F 08/25/21 04:41 Pulse 69 08/25/21 04:41 Resp 16 08/25/21 04:41 BP 106/68 08/25/21 04:41 Pulse Ox 97 08/25/21 04:41 Intake & Output 08/24/21 08/25/21 08/25/21 18:59 06:59 18:59 Other: Voiding Method Toilet Toilet # Voids 2 2 - Exam Abdomen: Soft, nontender, nondistended - Labs CBC & Chem 7: 08/25/21 06:54 08/25/21 06:54 Labs: Abnormal Lab Results - Last 24 Hours (Table) 08/25/21 Range/Units 06:54 Sodium 136 L (137-145) mmol/L Chloride 108 H (98-107) mmol/L Carbon Dioxide 19 L (22-30) mmol/L BUN 3 L (7-17) mg/dL Creatinine 0.46 L (0.52-1.04) mg/dL AST 44 H (14-36) U/L ALT 118 H (4-34) U/L Alkaline Phosphatase 142 H (38-126) U/L Assessment and Plan (1) Diverticulitis Narrative/Plan: 70-year-old female with CAT scan suggesting probable diverticulitis. Patient with elevated liver enzymes as well. Symptoms and lab work improving. Continue full liquids. Continue antibiotics. Current Visit: Yes Status: Acute Code(s): K57.92 - DVTRCLI OF INTEST, PART UNSP, W/O PERF OR ABSCESS W/O BLEED SNOMED Code(s): 078724272
[2021-08-25] MEDS ORDERED: MORPHINE SULFATE 2 MG/ML SYRINGE IV PRN (11:53)
--- NOTE | 2021-08-25 12:00 | P.PN ---
Subjective Patient is doing well today. Denies any abdominal pain. She is complaining of a sense of palpitation and is concerned about her heart. She denies any chest pain or shortness of breath. Objective - Vital Signs Vital signs: Vital Signs Temp 98.0 F 08/25/21 04:41 Pulse 69 08/25/21 04:41 Resp 16 08/25/21 04:41 BP 106/68 08/25/21 04:41 Pulse Ox 97 08/25/21 04:41 Intake & Output 08/24/21 08/25/21 08/25/21 18:59 06:59 18:59 Other: Voiding Method Toilet Toilet # Voids 2 2 - Exam General: The patient is awake and alert, in no distress Eye: there is normal conjunctiva bilaterally. Neck: The neck is supple, there is no JVD. Cardiovascular: Normal S1-S2, no S3-S4, no murmurs. Respiratory: Lungs clear to auscultation bilaterally Gastrointestinal: Abdomen is soft, nontender Musculoskeletal: There is no pedal edema. Neurological:. Speech is normal. Skin: Skin is warm and dry - Labs CBC & Chem 7: 08/25/21 06:54 08/25/21 06:54 Labs: Abnormal Lab Results - Last 24 Hours (Table) 08/25/21 Range/Units 06:54 Sodium 136 L (137-145) mmol/L Chloride 108 H (98-107) mmol/L Carbon Dioxide 19 L (22-30) mmol/L BUN 3 L (7-17) mg/dL Creatinine 0.46 L (0.52-1.04) mg/dL AST 44 H (14-36) U/L ALT 118 H (4-34) U/L Alkaline Phosphatase 142 H (38-126) U/L Assessment and Plan Assessment: This is a 70-year-old female with past medical history noted below that presented to the emergency room with worsening abdominal pain. Patient was evaluated in the ER and admitted to the hospital for further management of her medical problems noted below. 1. Abdominal pain with suspected perforation of the sigmoid colon and extensive inflammatory changes. Patient was started on broad-spectrum antibiotic with IV Zosyn. She was seen and evaluated by general surgery. She underwent HIDA scan that was abnormal. Gen. surgery believed that her symptoms have be secondary to both diverticulitis and chronic cholecystitis. No surgical intervention recommended at this time. Started on clear liquid diet. Reported normal colonoscopy a year ago in [place] 2. History of recurrent diverticulitis status post partial colectomy approximately 8 years ago 3. 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 Reported palpitation, heart sounds on exam are normal. I did obtain 12-lead EKG and start telemetry monitoring for further evaluation. Today, I reviewed her medication list and lab work results. Patient would benefit from at least 3 days of IV antibiotic given that she failed outpatient oral antibiotic for underlying diverticulitis Continue supportive care otherwise. Repeat lab work in the morning. Anticipate discharge home within the next day or 2.
--- NOTE | 2021-08-25 17:14 | PN ---
PROGRESS NOTE DATE OF SERVICE: 08/25/2021 REASON FOR FOLLOWUP: Acute diverticulitis. INTERVAL HISTORY: The patient is afebrile. The patient is feeling better, breathing comfortably. The patient's abdominal pain has resolved. No chest pain, shortness of breath or cough. No vomiting or diarrhea. PHYSICAL EXAMINATION: Blood pressure 93/61 with a pulse of 70, temperature 97.5. She is 96% on room air. General description is an elderly female up in the bed in no distress. RESPIRATORY SYSTEM: Unlabored breathing. Clear to auscultation anteriorly. No wheeze or crackle. HEART: S1, S2. Regular rate and rhythm. ABDOMEN: Soft. No tenderness. EXTREMITIES: No edema of the feet. LABS: Hemoglobin is 13.8, white count 7.0, BUN of 3, creatinine 0.467. Liver enzymes are mildly elevated. DIAGNOSTIC IMPRESSION AND PLAN: Patient with acute diverticulitis and a question of possible perforation. The patient seems to be clinically responding to Zosyn; to continue over the weekend and hopefully transition to oral Ceftin and Flagyl on discharge and close outpatient followup. The patient and her had multiple questions. Those were answered in layman's terms. MMODL / IJN: [id number] /
[2021-08-25 21:23] VITALS: TEMP 97.9
[2021-08-26 04:39] VITALS: BP 100/59; PULSE 61; RESP 18
[2021-08-26] MEDS: PIPERACILLIN-TAZOBACTAM 3.375 GM in SODIUM CHLORIDE 0.9% 100 ML IVPB SCH (05:11)
[2021-08-26] MEDS: ASPIRIN 81 MG PO SCH (07:40)
[2021-08-26] MEDS: PANTOPRAZOLE 40 MG TABLET PO SCH (07:40)
[2021-08-26] MEDS: SPIRONOLACTONE 25 MG TAB PO SCH (07:40)
[2021-08-26] MEDS: HEPARIN SODIUM,PORCINE/PF 5,000 UNIT/0.5 ML SYRINGE SQ SCH (07:41)
--- NOTE | 2021-08-26 10:00 | P.PN ---
Subjective Progress Note Date: 08/26/21 Principal diagnosis: Diverticulitis Patient feels well today. Denies pain at this time. No labs back from today. Patient is tolerating soft foods. Objective - Vital Signs Vital signs: Vital Signs Temp 97.9 F 08/26/21 04:38 Pulse 61 08/26/21 04:38 Resp 18 08/26/21 04:38 BP 100/59 08/26/21 04:38 Pulse Ox 99 08/26/21 04:38 Intake & Output 08/25/21 08/26/21 08/26/21 18:59 06:59 18:59 Intake Total 600 Balance 600 Intake: Oral 600 Other: Voiding Method Toilet # Voids 4 2 - Exam Abdomen: Soft, nontender, nondistended - Labs CBC & Chem 7: 08/25/21 06:54 08/25/21 06:54 Assessment and Plan (1) Diverticulitis Narrative/Plan: Patient improving clinically. Continue antibiotics. Agree with plans for possible discharge today or tomorrow. Outpatient follow-up with her primary care physician to evaluate elevated liver enzymes. Agree with plans for outpatient antibiotics. Current Visit: Yes Status: Acute Code(s): K57.92 - DVTRCLI OF INTEST, PART UNSP, W/O PERF OR ABSCESS W/O BLEED SNOMED Code(s): 105014388
--- NOTE | 2021-08-26 10:03 | P.DS ---
Providers Date of admission: 08/24/21 14:26 Expected date of discharge: 08/26/21 Attending physician: Elizabeth Vera MD Consults: 08/22/21 21:00 Consult Physician Routine Consulting Provider: Jacquelin Garcia Consult Reason/Comments: abdominal mass Do you want consulting provider notified?: Yes 08/24/21 11:52 Consult Physician Urgent Consulting Provider: Samira Vargas Consult Reason/Comments: Failed outpatient antibiotics for complicated diverticulitis Do you want consulting provider notified?: Yes Primary care physician: Stated None Hospital Course: This is a 70-year-old female with past medical history noted below that presented to the emergency room with worsening abdominal pain. Patient was evaluated in the ER and admitted to the hospital for further management of her medical problems noted below. 1. Abdominal pain with suspected perforation of the sigmoid colon and extensive inflammatory changes. Patient was started on broad-spectrum antibiotic with IV Zosyn. She was seen and evaluated by general surgery and infectious disease. She underwent HIDA scan that was abnormal. Gen. surgery believed that her symptoms have be secondary to both diverticulitis and chronic cholecystitis. No surgical intervention recommended at this time. Reported normal colonoscopy a year ago in [place] 2. History of recurrent diverticulitis status post partial colectomy approximately 8 years ago 3. 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 Reported palpitation, heart sounds on exam are normal. Patient refused twelve-lead EKG and teletypesetter monitor Today, I reviewed her medication list and lab work results. Transient transaminitis on presentation of unclear etiology. Patient advised to avoid Tylenol for the next few days Patient received IV Zosyn for 4 days during this hospital stay. She will finish antibiotic course with Ceftin and Flagyl for another week Follow-up with her doctors in [place] She will be discharged in a stable condition General: The patient is awake and alert, in no distress Eye: there is normal conjunctiva bilaterally. Neck: The neck is supple, there is no JVD. Cardiovascular: Normal S1-S2, no S3-S4, no murmurs. Respiratory: Lungs clear to auscultation bilaterally Gastrointestinal: Abdomen is soft, nontender Musculoskeletal: There is no pedal edema. Neurological:. Speech is normal. Skin: Skin is warm and dry Patient Condition at Discharge: Fair Plan - Discharge Summary Discharge Rx Participant: No New Discharge Prescriptions: New Cefuroxime Axetil [Ceftin] 500 mg PO BID 7 Days #14 tab metroNIDAZOLE [Flagyl] 500 mg PO Q8HR #21 tab Continue Spironolactone 100 mg PO DAILY Meloxicam [Mobic] 15 mg PO DAILY PRN PRN Reason: Pain Aspirin EC [Ecotrin Low Dose] 81 mg PO DAILY Discontinued metroNIDAZOLE [Flagyl] 500 mg PO Q8H Ciprofloxacin HCl [Cipro] 500 mg PO Q12HR Cephalexin [Keflex] 250 mg PO DAILY PRN PRN Reason: INTERCOURSE Discharge Medication List Aspirin EC [Ecotrin Low Dose] 81 mg PO DAILY 08/22/21 [History] Meloxicam [Mobic] 15 mg PO DAILY PRN 08/22/21 [History] Spironolactone 100 mg PO DAILY 08/22/21 [History] Cefuroxime Axetil [Ceftin] 500 mg PO BID 7 Days #14 tab 08/26/21 [Rx] metroNIDAZOLE [Flagyl] 500 mg PO Q8HR #21 tab 08/26/21 [Rx] Follow up Appointment(s)/Referral(s): Nonstaff,Physician [REFERRING] - 1-2 days Discharge Disposition: HOME SELF-CARE
== END 2021-08-26 10:55 | disposition home or self-care (01) | DRG 392 ==
LOC: EC 13:32 → 5NMEDONC 20:59 → OBSVTOIN 08-24 14:26
PROVIDERS: ADMIT Internal Medicine; ATTEND Internal Medicine
DX: K57.20 Diverticulitis of large intestine with perforation and abscess without bleeding (principal); E87.2 Acidosis; Z20.822 Contact with and (suspected) exposure to COVID-19; E27.8 Other specified disorders of adrenal gland; E86.0 Dehydration; F41.9 Anxiety disorder, unspecified; G25.81 Restless legs syndrome; I10 Essential (primary) hypertension; K21.00 Gastro-esophageal reflux disease with esophagitis, without bleeding; K22.4 Dyskinesia of esophagus; K59.00 Constipation, unspecified; K76.0 Fatty (change of) liver, not elsewhere classified; R00.2 Palpitations; K81.1 Chronic cholecystitis; K82.8 Other specified diseases of gallbladder; L68.0 Hirsutism; Z79.1 Long term (current) use of non-steroidal anti-inflammatories (NSAID); Z79.82 Long term (current) use of aspirin; Z87.19 Personal history of other diseases of the digestive system; Z90.49 Acquired absence of other specified parts of digestive tract; Z90.710 Acquired absence of both cervix and uterus; Z98.51 Tubal ligation status
CPT/HCPCS: 36415; 71046; 74177; 76705; 78227; 80048; 80053; 81001; 85025; 85027; 87635; 96360; 96361; 99285